=== PATIENT | female | born 1985 | race Caucasian/White ===

== ENCOUNTER 2022-07-30 20:46 | Observation (INO) | payer BC ==
[~2022-07-30] VITALS: Ht 165.1 cm; Wt 82.1 kg
[2022-07-30 22:19] LABS: BILIRUBIN,URINE NEGATIVE (NEGATIVE); BLOOD, URINE NEGATIVE (NEGATIVE); CLARITY/URINE CLEAR (CLEAR); COLOR,URINE YELLOW (YELLOW); GLUCOSE,URINE NEGATIVE (NEGATIVE); KETONES,URINE NEGATIVE (NEGATIVE); LEUKOCYTE ESTERASE ,URINE NEGATIVE (NEGATIVE); NITRITE, URINE NEGATIVE (NEGATIVE); PROTEIN URINE NEGATIVE (NEGATIVE); UROBILINOGEN,URINE 0.2 (0.2-1.0)
[2022-07-30] MEDS ORDERED: CEFAZOLIN 2 GM IVPB PREMIX 50 ML IV ONE (22:45)
[2022-07-31] MEDS: LR 1,000 ML IV SCH ×2 (00:01→05:05)
[2022-07-31] MEDS: TERBUTALINE SULFATE 1 MG/ML VIAL SUBCUT PRN ×2 (00:02→01:16)
== END 2022-07-31 08:25 | disposition home or self-care (01) ==
LOC: SPU 20:46
PROVIDERS: ADMIT Specialist; ATTEND Specialist
DX: O26.893 Other specified pregnancy related conditions, third trimester (principal); R10.2 Pelvic and perineal pain; Z3A.31 31 weeks gestation of pregnancy
CPT/HCPCS: 96374; 81002; 81003; 96361; 96372; 76815; J0690; J3105; G0378 ×2; 59899